=== PATIENT | female | born 1995 | race Caucasian/White ===

== ENCOUNTER 2016-10-09 09:48 | Emergency (ER) | payer OTHER ==
[~2016-10-09] VITALS: Ht 160 cm; Wt 61.8 kg
[~2016-10-09 09:48] MED LIST: FLOMAX0.4 MG PO; HYDROCODON-ACE1 EAC7 PO; NAPROXEN500 MG PO
[2016-10-09 10:10] LABS: HEMATOCRIT 39.5 % (36.0-46.0); MCHC 35.2 G/DL (30.0-36.0); PLATELET COUNT 257 K/uL (156-360); RBC DIS.WIDTH-CV 11.7 % (11.8-14.6); RBC DIS.WIDTH-SD 38.9 % (39-53); RED BLOOD COUNT 4.34 M/uL (3.80-5.20)
[2016-10-09 10:22] LABS: CHLORIDE 106 mEq/L (99-109); POTASSIUM 3.9 mEq/L (3.7-5.4); SODIUM 139 mEq/L (136-147)
[2016-10-09 10:24] LABS: GLUCOSE 98 mg/dL (70-99)
[2016-10-09 10:25] LABS: ANION GAP 14 MEQ/L (2-14)
[2016-10-09 10:28] LABS: GFR ESTIMATE (CALCULATED) > 59 mL/min/; UREA NITROGEN (BUN) 6 mg/dL (9-23)
[2016-10-09 10:56] LABS: ADD MIUA? YES; BILIRUBIN NEGATIVE; BLOOD LARGE; COLOR YELLOW ((YELLOW)); GLUCOSE (STRIP) NEGATIVE; KETONES 5; LEUKOCYTES TRACE; NITRITE NEGATIVE; PROTEIN (STRIP) 30; SPECIFIC GRAVITY 1.019 (1.000-1.030); UROBILINOGEN 0.2 MG/DL (0.2-1.0)
[2016-10-09 10:57] LABS: INTERNAL CONTROL VALID? YES
[2016-10-09 11:04] LABS: BACTERIA RARE /HPF; CALCIUM OXALATE CRYSTALS 1+ /HPF; EPITHELIAL CELLS RARE /HPF; GRANULAR CASTS 0-5 /LPF; HYALINE CASTS 0-5 /LPF; MUCUS 4+ /LPF; RED BLOOD CELLS TNTC /HPF (0-5); UCUL ADDED? NO
[2016-10-09] MEDS ORDERED: TRAMADOL HCL50 MG PO (11:31)
[2016-10-09] MEDS ORDERED: ZOFRAN ODT4 MG PO (11:31)
[2016-10-09 11:50] VITALS: BP 141/74
== END 2016-10-09 12:03 | disposition home or self-care (01) ==
LOC: EME 09:48
PROVIDERS: Emergency Medicine
DX: N20.1 Calculus of ureter (principal); R31.9 Hematuria, unspecified; Z87.442 Personal history of urinary calculi
CPT/HCPCS: 80048; 81003; 84703; 85027; 99281; 99285; J1170; J1885; J7030; J7050